=== PATIENT | female | born 1935 | race Hispanic/Latino ===

== ENCOUNTER 2022-03-21 09:28 | Observation (INO) | payer MEDICARE, MEDICAID ==
[~2022-03-21] VITALS: Ht 152.4 cm; Wt 81.5 kg
[2022-03-21 10:07] LABS: HEMATOCRIT 43.2 % (37.0-47.0); HEMOGLOBIN 13.5 g/dl (12.0-16.0); IMMATURE GRANULOCYTES 0.2 % (0.0-5.0); MEAN CELL VOLUME 107.7 fL CALC (80.0-100.0); MEAN CORPUSCULAR HGB 33.7 pG CALC (26.0-32.0); MEAN CORPUSCULAR HGB CONC 31.3 g/dL CAL (32.0-36.0); NEUT# 7.52 thou/uL (2.00-7.15); RED BLOOD COUNT 4.01 mill/uL (4.20-5.60); RED CELL DISTRI WIDTH 13.8 % (11.5-15.5)
[2022-03-21] MEDS ORDERED: CARVEDILOL3.125 MG PO (10:58)
[2022-03-21] MEDS ORDERED: SPIRONOLACT25 MG PO (11:00)
[2022-03-21] MEDS ORDERED: ELIQUIS2.5 MG (11:01)
[2022-03-21] MEDS ORDERED: LISINOPRIL5 MG PO (11:03)
[2022-03-21] MEDS ORDERED: LASIX 40 MG TAB40 MG PO (11:04)
[2022-03-21 11:29] LABS: ALBUMIN 3.8 g/dL (3.2-5.0); BILIRUBIN, TOTAL 1.2 mg/dL (0.0-1.4); TOTAL PROTEIN 7.4 g/dL (6.3-8.2)
[2022-03-21 11:30] LABS: MAGNESIUM 0.8 mg/dL (1.6-2.3); POTASSIUM 5.2 mmol/l (3.5-5.1)
[2022-03-21 19:03] VITALS: BP 96/57
[2022-03-21 19:30] VITALS: BP 100/55
[2022-03-22 00:17] VITALS: BP 90/46
[2022-03-22 03:57] VITALS: BP 114/63
[2022-03-22 05:11] LABS: HEMATOCRIT 38.8 % (37.0-47.0); HEMOGLOBIN 12.2 g/dl (12.0-16.0); MEAN CELL VOLUME 106.3 fL CALC (80.0-100.0); MEAN CORPUSCULAR HGB 33.4 pG CALC (26.0-32.0); MEAN CORPUSCULAR HGB CONC 31.4 g/dL CAL (32.0-36.0); RED BLOOD COUNT 3.65 mill/uL (4.20-5.60); RED CELL DISTRI WIDTH 13.8 % (11.5-15.5)
[2022-03-22 05:36] LABS: CREATININE 1.5 mg/dL (0.5-1.0)
[2022-03-22 05:41] LABS: MAGNESIUM 2.5 mg/dL (1.6-2.3)
[2022-03-22 10:50] VITALS: BP 111/32
[2022-03-22] MEDS ORDERED: AZITHROMYCIN500 MG PO (13:07)
== END 2022-03-22 15:18 | disposition home health service (06) ==
LOC: ED 09:28 → ED-I 10:30 → ED 11:57 → MS2 11:58
PROVIDERS: Internal Medicine; ADMIT Hospitalist; ATTEND Hospitalist
DX: J44.1 Chronic obstructive pulmonary disease with (acute) exacerbation (principal); I11.0 Hypertensive heart disease with heart failure; I50.9 Heart failure, unspecified; E86.0 Dehydration; E83.42 Hypomagnesemia; I95.9 Hypotension, unspecified; N17.9 Acute kidney failure, unspecified; I48.91 Unspecified atrial fibrillation; F03.90 Unspecified dementia, unspecified severity, without behavioral disturbance, psychotic disturbance, mood disturbance, and anxiety; Z79.01 Long term (current) use of anticoagulants; Z99.81 Dependence on supplemental oxygen; Z20.822 Contact with and (suspected) exposure to COVID-19
CPT/HCPCS: G0378; J3475

== ENCOUNTER 2022-05-08 07:56 | Observation (INO) | payer MEDICARE, MEDICAID ==
[~2022-05-08] VITALS: Ht 152.4 cm; Wt 78.0 kg
[2022-05-08] VITALS (30 sets, daily range): BP systolic 69–128; BP diastolic 51–92
[~2022-05-08 07:56] MED LIST: AZITHROMYCIN500 MG PO; CARVEDILOL3.125 MG PO; ELIQUIS2.5 MG; LASIX 40 MG TAB40 MG PO; LISINOPRIL5 MG PO; SPIRONOLACT25 MG PO
[2022-05-08 08:25] LABS: HEMATOCRIT 36.4 % (37.0-47.0); HEMOGLOBIN 11.3 g/dl (12.0-16.0); IMMATURE GRANULOCYTES 0.2 % (0.0-5.0); MEAN CELL VOLUME 108.3 fL CALC (80.0-100.0); MEAN CORPUSCULAR HGB 33.6 pG CALC (26.0-32.0); NEUT# 3.06 thou/uL (2.00-7.15); RED BLOOD COUNT 3.36 mill/uL (4.20-5.60); RED CELL DISTRI WIDTH 13.5 % (11.5-15.5)
[2022-05-08 08:43] LABS: ALBUMIN 3.6 g/dL (3.2-5.0); ALKALINE PHOSPHATASE 57 u/l (38-126); BILIRUBIN, TOTAL 0.6 mg/dL (0.0-1.4); CARBON DIOXIDE 31 mmol/l (22-30); CHLORIDE 101 mmol/l (95-108); GFR FOR AFR.AMER. > 60 ML/MIN (>=60 (CALC)); GFR OTHER RACES 52 ML/MIN (>=60 (CALC)); SGOT/AST 26 u/l (9-36); SODIUM 140 mmol/l (137-146)
[2022-05-08 08:45] LABS: ANION GAP 12 (6-22 (CALC)); BUN 13 mg/dL (8-23); BUN/CREATININE RATIO 13 (12-20 (CALC)); POTASSIUM 3.6 mmol/l (3.5-5.1)
[2022-05-08 11:35] LABS: URINE BILIRUBIN - DIPSTICK NEGATIVE (NEGATIVE); URINE BLOOD DIPSTICK TRACE-INTACT (NEGATIVE); URINE COLOR YELLOW; URINE GLUCOSE - DIPSTICK NEGATIVE (NEGATIVE); URINE KETONE NEGATIVE (NEGATIVE); URINE LEUK ESTERASE NEGATIVE (NEGATIVE); URINE PROTEIN - DIPSTICK NEGATIVE (NEG-TRACE); URINE UROBILINOGEN - DIPSTICK 0.2 E.U./dL (0.2)
[2022-05-08 11:40] LABS: URINE NITRITE - DIPSTICK NEGATIVE (Negative)
[2022-05-08] MEDS ORDERED: ASPIRIN81 MG PO (12:57)
[2022-05-08] MEDS ORDERED: CARVEDILOL3.125 MG PO (12:57)
[2022-05-08] MEDS ORDERED: SPIRONOLACTONE25 MG PO (12:59)
[2022-05-08] MEDS ORDERED: FUROSEMIDE20 MG PO (12:59)
[2022-05-08] MEDS ORDERED: POTASSIUM CHLO20 ME2 PO (13:00)
[2022-05-08] MEDS ORDERED: OMEPRAZOLE DR40 MG PO (13:00)
[2022-05-08] MEDS ORDERED: LISINOPRIL5 MG PO (13:01)
[2022-05-08] MEDS ORDERED: ELIQUIS2.5 MG PO (13:01)
[2022-05-08] MEDS ORDERED: SERTRALINE25 MG PO (13:01)
[2022-05-09] VITALS (8 sets, daily range): BP systolic 72–108; BP diastolic 28–73
[2022-05-09 06:33] LABS: ANION GAP 14 (6-22 (CALC)); BUN 15 mg/dL (8-23); BUN/CREATININE RATIO 15 (12-20 (CALC)); CALCULATED LDLCHOLESTEROL 144 mg/dL (62-129 (CALC)); CARBON DIOXIDE 33 mmol/l (22-30); CHLORIDE 96 mmol/l (95-108); CHOLESTEROL HDL RATIO 4.4 (<4.4 (CALC)); GFR FOR AFR.AMER. > 60 ML/MIN (>=60 (CALC)); GFR OTHER RACES 52 ML/MIN (>=60 (CALC)); HDL CHOLESTEROL 48 mg/dL (>=40); POTASSIUM 3.7 mmol/l (3.5-5.1); SODIUM 139 mmol/l (137-146); TOTAL CHOLESTEROL 212 mg/dl (0-199); TOTAL TRIGLYCERIDES 95 mg/dl (30-149); VLDL CHOLESTROL 19 mg/dl (0-48 (CALC))
[2022-05-09 06:37] LABS: MAGNESIUM 0.4 mg/dL (1.6-2.3)
[2022-05-09 06:39] LABS: HEMOGLOBIN 11.3 g/dl (12.0-16.0); MEAN CELL VOLUME 108.4 fL CALC (80.0-100.0); MEAN CORPUSCULAR HGB CONC 31.4 g/dL CAL (32.0-36.0); RED BLOOD COUNT 3.32 mill/uL (4.20-5.60); RED CELL DISTRI WIDTH 13.5 % (11.5-15.5)
[2022-05-09] MEDS ORDERED: MAGOX 400400 MG PO (11:40)
== END 2022-05-09 14:11 | disposition home health service (06) ==
LOC: ED 07:56 → ED-I 08:33 → ED 08:33 → ED-I 10:10 → ED 10:45 → MS2 10:46
PROVIDERS: Family Medicine; ADMIT Internal Medicine; ATTEND Internal Medicine
DX: I11.0 Hypertensive heart disease with heart failure (principal); I50.9 Heart failure, unspecified; N17.9 Acute kidney failure, unspecified; E83.42 Hypomagnesemia; E83.51 Hypocalcemia; J44.9 Chronic obstructive pulmonary disease, unspecified; I48.91 Unspecified atrial fibrillation; F03.90 Unspecified dementia, unspecified severity, without behavioral disturbance, psychotic disturbance, mood disturbance, and anxiety; Z86.711 Personal history of pulmonary embolism; Z99.81 Dependence on supplemental oxygen; Z20.822 Contact with and (suspected) exposure to COVID-19
CPT/HCPCS: G0378; J3475; Q9967

== ENCOUNTER 2022-07-02 13:47 | Inpatient (IN) | payer MEDICARE, MEDICAID ==
[~2022-07-02] VITALS: Ht 154.9 cm; Wt 85.1 kg
[2022-07-02] VITALS (28 sets, daily range): BP systolic 78–117; BP diastolic 40–83
[~2022-07-02 13:47] MED LIST changes: +ASPIRIN81 MG PO; +ELIQUIS2.5 MG PO; +FUROSEMIDE20 MG PO; +MAGOX 400400 MG PO; +OMEPRAZOLE DR40 MG PO; +POTASSIUM CHLO20 ME2 PO; +SERTRALINE25 MG PO; +SPIRONOLACTONE25 MG PO
--- NOTE | 2022-07-02 13:47 | NUR ---
PT TO ROOM VIA EMS FROM HOME
--- NOTE | 2022-07-02 14:00 | NUR ---
PT IN ROOM ON MONITOR, CENTRAL LINE TO BE PLAVED PER ER MD.
[2022-07-02 14:40] LABS: HEMATOCRIT 31.1 % (37.0-47.0); HEMOGLOBIN 9.5 g/dl (12.0-16.0); IMMATURE GRANULOCYTES 0.5 % (0.0-5.0); MEAN CELL VOLUME 109.5 fL CALC (80.0-100.0); MEAN CORPUSCULAR HGB 33.5 pG CALC (26.0-32.0); MEAN CORPUSCULAR HGB CONC 30.5 g/dL CAL (32.0-36.0); NEUT# 13.6 thou/uL (2.00-7.15); RED BLOOD COUNT 2.84 mill/uL (4.20-5.60); RED CELL DISTRI WIDTH 13.6 % (11.5-15.5)
--- NOTE | 2022-07-02 15:00 | NUR ---
PT IN ROOM ON MONITOR RECEIVING IV FLUIDS, ANTIBIOTICS, AND VASOPRESSERS, WILL CONT TO MONITOR.
[2022-07-02 15:11] LABS: ALBUMIN 3.1 g/dL (3.2-5.0); CREATININE 1.2 mg/dL (0.5-1.0); POTASSIUM 3.3 mmol/l (3.5-5.1); TOTAL PROTEIN 6.6 g/dL (6.3-8.2)
[2022-07-02 15:23] LABS: BILIRUBIN, TOTAL 2.3 mg/dL (0.0-1.4)
--- NOTE | 2022-07-02 16:01 | NUR ---
PT IN ROOM ON MONITOR RECEIVING IV FLUIDS AND ANTIBIOTICS, CENTRAL LINE PLACED IN PT RIGHT IJ. WILL CONT TO MONITOR.
--- NOTE | 2022-07-02 17:00 | NUR ---
PT TO BE ADMITTED TO ICU, RECEIVING IV FLUIDS AND SLEEPING.
--- NOTE | 2022-07-02 18:00 | NUR ---
PT BP STEADILY DECREASING, LEVOPHED INCREASED, NOTIFIED, PT ALSO PUT ON VENTI MASK 40% BY RT.
--- NOTE | 2022-07-02 19:01 | NUR ---
PT BP IMPROVING WITH LEVOPHED, AWAITING ICU BED, CONTINUING TO MONITOR.
--- NOTE | 2022-07-02 19:57 | NUR ---
REPORT CALLED TO MAVERICK FISCHER.
--- NOTE | 2022-07-02 20:44 | NUR ---
Admission Note Report Given to: MAVERICK RN Transported by: Wheelchair X Stretcher Transported with: X Nurse Transporter X Patent IV X O2 X Heating Unit Installer Location: X ICU MS2 PT ADMITTED TO ICU BED 8, TRANSPORTED VIA STRETCHER, ON OXYGEN BY SETH FISCHER.
--- NOTE | 2022-07-02 21:00 | NUR ---
RECIEVED PATIENT FROM er ,UKRAINIAN SPEAKING ONLY .ON LEVOPHED DRIP TITRATING TO KEEP MAP> 85. VENTI MASK ON 7 LITERS . NO S/S OF DISTRESS NOTED.ABSCESS TO RIGHT SUDHIR UP TO THE BUTTOCK NOTED. SMALL AMOUNT OF REDDISH DRAINAGE NOTED.
[2022-07-02 21:47] LABS: URINE BLOOD DIPSTICK NEGATIVE (NEGATIVE); URINE GLUCOSE - DIPSTICK 100 mg/dL (NEGATIVE); URINE KETONE NEGATIVE (NEGATIVE); URINE LEUK ESTERASE NEGATIVE (NEGATIVE); URINE PROTEIN - DIPSTICK TRACE mg/dL (NEG-TRACE); URINE SPECIFIC GRAVITY 1.025
[2022-07-02 21:48] LABS: URINE BILIRUBIN - DIPSTICK SMALL (NEGATIVE); URINE COLOR AMBER; URINE NITRITE - DIPSTICK NEGATIVE (Negative)
[2022-07-03] VITALS (144 sets, daily range): BP systolic 61–159; BP diastolic 30–113
--- NOTE | 2022-07-03 00:19 | NUR ---
CALL PLACED TO DR. ALEXANDER REGARDING PATIENT LOW B/P ORDER NOTED TO GIVE 500 NS BOLUS AND START PATIENT ON EPINEPHRINE OR VASOPRESSIN.
--- NOTE | 2022-07-03 02:22 | NUR ---
patient resting in bed .she tried to pull her i.v lines.
[2022-07-03 07:02] LABS: HEMATOCRIT 31.1 % (37.0-47.0); HEMOGLOBIN 9.4 g/dl (12.0-16.0); MEAN CELL VOLUME 112.3 fL CALC (80.0-100.0); MEAN CORPUSCULAR HGB 33.9 pG CALC (26.0-32.0); MEAN CORPUSCULAR HGB CONC 30.2 g/dL CAL (32.0-36.0); RED BLOOD COUNT 2.77 mill/uL (4.20-5.60); RED CELL DISTRI WIDTH 13.9 % (11.5-15.5)
[2022-07-03 07:18] LABS: ALBUMIN 2.9 g/dL (3.2-5.0); BILIRUBIN, TOTAL 1.9 mg/dL (0.0-1.4); CREATININE 1.3 mg/dL (0.5-1.0); POTASSIUM 3.4 mmol/l (3.5-5.1); TOTAL PROTEIN 6.2 g/dL (6.3-8.2)
--- NOTE | 2022-07-03 07:32 | NUR ---
Ping coates for possible i&d procedure
--- NOTE | 2022-07-03 07:50 | NUR ---
Patient agitated and anxious, yelling out in persian, family to come and visit with patient this am.
[2022-07-03 07:53] LABS: MAGNESIUM 0.9 mg/dL (1.6-2.3)
--- NOTE | 2022-07-03 08:09 | NUR ---
Patient taken off venti mask and placed on nasal canula at 3 liters humidified.
[2022-07-03] MEDS ORDERED: CALCIUM600 M1 PO (09:56)
--- NOTE | 2022-07-03 13:35 | NUR ---
S: VIOLA SUAREZ is a 86 F who presents with cellulitis and pneumonia. She has a history of COPD, CHF, and A-FIB. All medications in patient's chart were reviewed. O: VS: BP 104/92mmHg, P 99bpm, RR 20breaths/min, T 96.5 F W 62.72kg, HT 61in, Scr= 1.3mg/dL, CrCl= 25ml/min A: Blood culture is pending. P: Patient is on Zosyn. Vancomycin ordered for pharmacy to dose. Start Vancomycin 1g IV Q36H. Vancomycin trough is drawn before the 4th dose on 07/05 at 1530. Vancomycin goal trough is between 15-20 mcg/ml. Pharmacy will follow and or advise on antibiotics use as needed.
--- NOTE | 2022-07-03 20:00 | NUR ---
SHIFT REASSESSMENT - PT SLEEPING AT THIS TIME. REMAINS DISORIENTED WHEN SHE IS AWAKE. DOES ACCEPT WATER AND FOOD WHEN OFFERED, BUT SPITS OUT HER PILLS. PTS VITAL SIGNS ARE WITHIN NORMAL LIMITS. ON LEVOPHED DRIP AND IV FLUIDS. SAFETY PRECAUTIONS ARE IN PLACE. PT BEING CLOSELY MONITORED.
[2022-07-04] VITALS (96 sets, daily range): BP systolic 84–138; BP diastolic 42–85
--- NOTE | 2022-07-04 | NUR ---
SHIFT REASSESSMENT - PT NPO AT THIS TIME. PTS VITAL SIGNS ARE WITHIN NORMAL LIMITS. LEVOPHED BEING TITRATED DOWN.
--- NOTE | 2022-07-04 04:00 | NUR ---
SHIFT REASSESSMENT - NO CHANGE IN PTS STATUS SINCE PREVIOUS ASSESSMENT. SAFETY PRECAUTIONS ARE IN PLACE. PT BEING CLOSELY MONITORED.
[2022-07-04 06:56] LABS: HEMATOCRIT 34.1 % (37.0-47.0); HEMOGLOBIN 10.1 g/dl (12.0-16.0); MEAN CORPUSCULAR HGB 34.4 pG CALC (26.0-32.0); MEAN CORPUSCULAR HGB CONC 29.6 g/dL CAL (32.0-36.0); RED BLOOD COUNT 2.94 mill/uL (4.20-5.60); RED CELL DISTRI WIDTH 13.8 % (11.5-15.5)
[2022-07-04 07:19] LABS: ALBUMIN 2.8 g/dL (3.2-5.0); BILIRUBIN, TOTAL 1.7 mg/dL (0.0-1.4); CREATININE 1.5 mg/dL (0.5-1.0); TOTAL PROTEIN 6.1 g/dL (6.3-8.2)
[2022-07-04 07:24] LABS: POTASSIUM 4.1 mmol/l (3.5-5.1)
[2022-07-04 07:25] LABS: MAGNESIUM 1.8 mg/dL (1.6-2.3)
--- NOTE | 2022-07-04 09:00 | NUR ---
pt to OR then back due to decreased LOC and minimal responsiveness, remains off levophed
--- NOTE | 2022-07-04 10:06 | NUR ---
ABG done, Bipap initiated at 40% O2, 20/10, pt responsive to painful stimuli but does not open eyes
--- NOTE | 2022-07-04 12:40 | NUR ---
pt more responsive, opens eyes to voice and follows simple commands, remains on Bipap
--- NOTE | 2022-07-04 14:55 | NUR ---
FIO2 DECREASED TO 35%.
--- NOTE | 2022-07-04 15:50 | NUR ---
pt continues on Bipap, blood gasses improving, less responsive at this time, does not open eyes to voice but does respond to movement and stimuli
--- NOTE | 2022-07-04 18:00 | NUR ---
Dr Ugrate notified of minimal urine output
--- NOTE | 2022-07-04 18:28 | NUR ---
orders received from Dr Ugarte, blood drawn, awaiting pharmacy
[2022-07-04 18:58] LABS: CREATININE 1.8 mg/dL (0.5-1.0)
--- NOTE | 2022-07-04 19:15 | NUR ---
pt is poorly responsive. bipap cont. hob remains elevated. surveillance system monitor shows a fib pvcs. ivf infusing well per rij tlc. webb cath draining scant amount urine. 10cc urine emptied. webb bag changed to urometer. lasix given as ordered. pt has general body edema. turned & repositioned. requires total care for all needs.
--- NOTE | 2022-07-04 20:45 | NUR ---
dr lizarraga called this hand sign writer. update given. orders rec'd. rt notified of need for abg.
--- NOTE | 2022-07-04 21:15 | NUR ---
rt here. abg drawn.
--- NOTE | 2022-07-04 21:30 | NUR ---
pt attempting to take off bipap. rt here. spoke stateless to pt & pt is responding appropriately. rt explained to pt bipap must stay on. pt verbalized understanding. mouth care given.
--- NOTE | 2022-07-04 21:45 | NUR ---
dr lizarraga called this writer editor. updated on pts condition. is aware of very low uop. no new orders.
[2022-07-05] VITALS (96 sets, daily range): BP systolic 68–149; BP diastolic 40–94
--- NOTE | 2022-07-05 00:01 | NUR ---
has had few drops of urine in webb tubing. cafeteria monitor shows sinus rhythm pacs & pvcs. turned & repositioned.
--- NOTE | 2022-07-05 01:00 | NUR ---
RECEIVED PATIENT AT THIS TIME FROM MED/SURG PATIENT ALERT AND ORIENTED X 3 PATIENT VITAL SIGNS AT THIS TIME ARE: TEMP IS 98.3 PULSE 85 BP 90/61 PULSE OX 95% ON ROOM AIR. PATIENT PRESENTS WITH 14 F BI WILLS WITH CBI IRRIGATION FLOWING. PATIENT DENEIS ANY PAIN AT THIS TIME. REPORT GIVEN TO THIS NURSE AT BEDSIDE BY LETI FISCHER. PATIENT SENT TO ICU TO START ON LEVOPHED DRIP DUE TO LOW BLOOD PRESSURE. PATIENT GIVEN EDUCATION ON MEDICATION. WILLS DRAINING CLEAR YELLOW URINE WITHOUT ANY PRESSURE OR PAIN WILL CONTINUE TO MONITOR.
--- NOTE | 2022-07-05 02:00 | NUR ---
cont to have scant uop. bipap cont. party host/hostess shows sinus rhythm pacs pvcs.
--- NOTE | 2022-07-05 04:50 | NUR ---
blood drawn & sent to lab
--- NOTE | 2022-07-05 05:24 | NUR ---
complete bed bath given x2 assists. linens changed.
[2022-07-05 05:54] LABS: HEMATOCRIT 29.8 % (37.0-47.0); IMMATURE GRANULOCYTES 0.6 % (0.0-5.0); MEAN CELL VOLUME 111.6 fL CALC (80.0-100.0); MEAN CORPUSCULAR HGB 33.7 pG CALC (26.0-32.0); MEAN CORPUSCULAR HGB CONC 30.2 g/dL CAL (32.0-36.0); NEUT# 10.07 thou/uL (2.00-7.15); RED BLOOD COUNT 2.67 mill/uL (4.20-5.60); RED CELL DISTRI WIDTH 13.7 % (11.5-15.5)
[2022-07-05 06:13] LABS: ALBUMIN 2.4 g/dL (3.2-5.0); BILIRUBIN, TOTAL 1.4 mg/dL (0.0-1.4); CREATININE 2.1 mg/dL (0.5-1.0); MAGNESIUM 1.7 mg/dL (1.6-2.3); POTASSIUM 4.1 mmol/l (3.5-5.1); TOTAL PROTEIN 5.4 g/dL (6.3-8.2)
--- NOTE | 2022-07-05 06:15 | NUR ---
xray here. pcxr obtained.
--- NOTE | 2022-07-05 06:25 | NUR ---
rt here. abgs drawn.
--- NOTE | 2022-07-05 06:29 | NUR ---
FIO2 DECREASED TO 30%
--- NOTE | 2022-07-05 06:52 | NUR ---
dr lizarraga called this physician underwriter. update given. orders rec'd.
--- NOTE | 2022-07-05 10:28 | NUR ---
PT. PULLING OFF BIPAP. REFUSING TO KEEP ON. PLACED ON 3L NC.
--- NOTE | 2022-07-05 11:32 | NUR ---
pt woke up and began to pull at Bipap mask so she is back on NC at this time, O2 sats continue low 90's, Dr Urena has been in to see her and is planning on surgery tomorrow, pt yelling for "agua", mouth swabbed and moisturizer applied
--- NOTE | 2022-07-05 13:37 | NUR ---
PLACED BACK ON BIPAP.
--- NOTE | 2022-07-05 19:20 | NUR ---
bipap cont. pt repeats several times "i can't" in khmer per engraver optical frames. therapist radiation shows sinus rhythm pacs. ivf infusing well per lij tlc. webb cath in place draining scant amt urine. gen body edema conts. arms weeping slightly & are elevated on pillows. turned & repositioned.
--- NOTE | 2022-07-05 19:50 | NUR ---
dr lizarraga called this science writer. updated on pts condition. orders rec'd.
--- NOTE | 2022-07-05 20:00 | NUR ---
rt here. abgs drawn.
--- NOTE | 2022-07-05 21:20 | NUR ---
pt c/o general pain (per casting tester). dr lizarraga notified. orders rec'd.
--- NOTE | 2022-07-05 22:00 | NUR ---
medicated for pain as ordered.
--- NOTE | 2022-07-05 23:18 | NUR ---
BIPAP PLACED ON STANDBY TOLERATING WELL WITH STABLE VITALS.
--- NOTE | 2022-07-05 23:30 | NUR ---
eyes closed. resting quietly. o2 cont per nc. hob remains elevated. tassel snipper shows sinus rhythm pacs.
[2022-07-06] VITALS (104 sets, daily range): BP systolic 57–148; BP diastolic 31–119
--- NOTE | 2022-07-06 02:00 | NUR ---
resting quietly. no resp distress. o2 cont per nc.
--- NOTE | 2022-07-06 04:30 | NUR ---
xray here. pcxr obtained
--- NOTE | 2022-07-06 05:00 | NUR ---
blood drawn & sent to lab. bath & linen change x2 assists.
[2022-07-06 05:20] LABS: HEMATOCRIT 29.1 % (37.0-47.0); HEMOGLOBIN 9.2 g/dl (12.0-16.0); MEAN CELL VOLUME 107.8 fL CALC (80.0-100.0); MEAN CORPUSCULAR HGB 34.1 pG CALC (26.0-32.0); MEAN CORPUSCULAR HGB CONC 31.6 g/dL CAL (32.0-36.0); RED BLOOD COUNT 2.7 mill/uL (4.20-5.60)
[2022-07-06 05:28] LABS: ALBUMIN 2.6 g/dL (3.2-5.0); BUN 31 mg/dL (8-23); CARBON DIOXIDE 21 mmol/l (22-30); CHLORIDE 107 mmol/l (95-108); CREATININE 2.7 mg/dL (0.5-1.0); GFR FOR AFR.AMER. 20 ML/MIN (>=60 (CALC)); GFR OTHER RACES 17 ML/MIN (>=60 (CALC)); POTASSIUM 3.9 mmol/l (3.5-5.1); SODIUM 139 mmol/l (137-146)
--- NOTE | 2022-07-06 09:50 | NUR ---
Dr Urena has been in to drain abcess, wound packed with gauze, pt twyla well, family has been in to see pt, waiting to meet with Dr Ugarte, pt is resting with NC in place, not yelling out
--- NOTE | 2022-07-06 11:00 | NUR ---
Dr Garcia called to ask about family wishes in regard to dialysis, Dr Ugarte in with family now to discuss their wishes and to answer questions about pt
--- NOTE | 2022-07-06 12:36 | NUR ---
pt family called and spoke to myself and Niyah to express wish to do dialysis but to make pt DNR, Dr Ugarte informed
--- NOTE | 2022-07-06 12:40 | NUR ---
Dr Costa called to follow up with pt, will call again later
--- NOTE | 2022-07-06 14:15 | NUR ---
Dr Mejia in room, inserted temp dialysis cath to R fem
--- NOTE | 2022-07-06 15:41 | NUR ---
Dr Costa evaluated pt via video, recommended pt back on Bipap,1445 Bipap mask placed back on at previous settings, 20 @ 30%, 1525 Levophed restarted due to consistant low BP
--- NOTE | 2022-07-06 18:14 | NUR ---
pt grand daughter at bedside at this time, she removed Bopap mask per pt request so NC back in place at 2 Lpm, pt does c/o pain at vas cath site, explained to family side effects of giving pain meds: low BP and depressed RR
--- NOTE | 2022-07-06 19:00 | NUR ---
[id number] awake. o2 cont per nc. laboratory monitor shows sinus rhythm. ivf infusing per rij tlc. webb cath in plce. no urine output. gen body edema conts. bilat arms elevated on pillows. kerlex packing to i&d site in place & draining bloody. requires total assist with all care. pt pulling @ o2, laboratory monitor, iv tubing. requires frequent observation. granddaughter(guido) @ bedside & is tearful. she is speaking to other family members on facetime. grails web application developer provided spoke @ length to them about pts status-no urine output, low bp, sepsis, dialysis cath, vital signs, meds, i&d packing, bipap. all questions answered. family eventually decided to keep bipap off d/t pts refusal & nasal cannula was placed. before granddaughter left for the evening spoke to her @ length again about pts condition. she has expressed several times "it was only a pimple." granddaughter referring to rectal abcess. explained again about previous topics. phone number & pt code number given to her & she was instructed to call this process description writer anytime tonight. dr lizarraga was updated on pts condition-no urine output, no bipap, vital signs. no new orders.
--- NOTE | 2022-07-06 19:57 | NUR ---
Patient placed on Bipap, tolerating well at this time.
--- NOTE | 2022-07-06 21:04 | NUR ---
Bipap currently on standby, grand daughter refused to not have her grandmother placed back on bipap. Confirmed with Emma FISCHER.
--- NOTE | 2022-07-06 21:38 | NUR ---
Patient placed on NRB due to oxygen desaturation. Tolerating well at this time.
--- NOTE | 2022-07-06 22:00 | NUR ---
[id number] pt required constant supervision because she pulled nrb off VERY frequently. bilat wrist restraints were applied @ 2344.
[2022-07-07] VITALS (57 sets, daily range): BP systolic 63–196; BP diastolic 29–172
--- NOTE | 2022-07-07 02:00 | NUR ---
library monitor shows sinus rhythm pacs. no urine output. o2 cont.
--- NOTE | 2022-07-07 03:30 | NUR ---
blood drawn & sent to lab.
[2022-07-07 04:10] LABS: HEMATOCRIT 28.7 % (37.0-47.0); HEMOGLOBIN 8.9 g/dl (12.0-16.0); MEAN CELL VOLUME 110.4 fL CALC (80.0-100.0); MEAN CORPUSCULAR HGB 34.2 pG CALC (26.0-32.0); RED BLOOD COUNT 2.6 mill/uL (4.20-5.60); RED CELL DISTRI WIDTH 14.4 % (11.5-15.5)
--- NOTE | 2022-07-07 04:30 | NUR ---
rosamaria, dialysis nurse here. she called dr alvarez & updated him on pts condition. he still wanted to do dialysis on pt. guido kessler(granddaughter) called. phone consent rec'd.
[2022-07-07 04:38] LABS: ALBUMIN 2.6 g/dL (3.2-5.0); BILIRUBIN, TOTAL 1.7 mg/dL (0.0-1.4); CREATININE 3.3 mg/dL (0.5-1.0); MAGNESIUM 1.7 mg/dL (1.6-2.3); POTASSIUM 4.4 mmol/l (3.5-5.1); TOTAL PROTEIN 5.8 g/dL (6.3-8.2)
--- NOTE | 2022-07-07 06:12 | NUR ---
DIALYSIS PRE: PT RECEIVED IN BED, ICU8, PT CONFUSED, WITH RESTRAIN ON BOTH ARMS, LEVO @ 15 MCG AND VASOPRESSIN 0.07 UNI/MIN, BP 101/73 P 89, SAT. 88%, R-21, TEMP-96.5 LUNGS WITH EXP. CRACKLES BILAT, PT WITH GENERALIZED EDEMA. PT AWAKE, PRIMARY RN CALLED FAMILY TO GET HER HD TX CONSENT, SIGNED BY 2 [employer] SPECIALIST'S, DR. RAINEY CALLED ABOUT HER STATUS. ALBUMIN ORDER GIVEN, PT WITH RT FEMORAL LINE PUT ON 07/06/22, DRESSING CHANGED, NO S/S OF INFECTION. TX STARTED UNDER ASEPTIC TECHNIQUES, [employer]ARGET SET TO 1 LT BRYCE, WILL MONITOR HER BP. [id number] CARTRIDGE [id number] PH-7.2 COND. ACT-14.1 COND. EXP-14.0 WATER TEMP- 78.5
--- NOTE | 2022-07-07 06:30 | NUR ---
[id number] midray monitor shows hr 147-199. heart rate has been 84-110. shows bp 150/120-190/134. bp has been 89/53-101/73. rt has changed pulse ox probe several times d/t poor reading.
--- NOTE | 2022-07-07 08:08 | NUR ---
PT SEEN AWAKE, ORIENTED TO SELF, KHMER ONLY. PT WITH NRB IN PLACE, MAINTAINS SATS IN THE MID 80s. PT OCCASIONALLY CRIES OUT WITHOUT PURPOSE. RESTRAINTS IN PLACE PT REACHES FOR NRB OTHERWISE. NO FAMILY AT BEDSIDE AT THIS TIME. PT NOTED TO BE DNR. DIALYSIS IN PROGRESS AT THIS TIME PT ANURIC DURING NIGHT. PT UNABLE TO CLEAR SECRETIONS FROM THROAT PER WEAK COUGH.
--- NOTE | 2022-07-07 11:27 | NUR ---
PT HAS . RESPIRATIONS BECAME AGONAL, HR WENT FROM 140 TO 85, CONTINUED TO DROP UNTIL STOPPED. GRANDDAUGHTER LUCIA WETZEL WAS NOTIFIED AFTER GRANDDAUGHTER SALMA DID NOT ANSWER HER PHONE. LUCIA SAID THAT SHE WOULD TELL THE FAMILY. FAMILY WILL COME TO VISIT.
--- NOTE | 2022-07-07 11:42 | NUR ---
DIALYSIS POST: PT STARTED WITH TACHY, 160'S-190'S. TX ENDED 20 MIN LEFT. BLOOD RETURNED UNDER ASEPTIC TECHNIQUES, CVC CAPPED AND CLAMPPED. 400 ML REMOVED. PREETI FISCHER BEDSIDE. DR. RAINEY NOTIFIED.
--- NOTE | 2022-07-07 11:53 | NUR ---
[facility] called per securities underwriter; information provided to Rafaela; pt r/o for tissue annd organ donation; awaiting return call from [facility]; referral # [id number]
--- NOTE | 2022-07-07 12:03 | NUR ---
call received from [facility] at [facility]; pt ruled out/released
--- NOTE | 2022-07-07 12:47 | NUR ---
PT VISITED BY GRANDDAUGHTER LUCIA AND HER MOTHER. FAMILY COMING FROM [facility] TO PAY RESPECTS.
--- NOTE | 2022-07-07 16:28 | NUR ---
FAMILY MEMBERS HAVE GONE HOME. HOME HAS BEEN NOTIFIED. BELONGINGS WERE SENT HOME WITH MARIKA WETZEL, WHICH INCLUDED CLOTHES, ID CARD, DENTURES, AND EARRINGS.
--- NOTE | 2022-07-07 18:01 | NUR ---
MAHADEILEEN THOMASCHET LEAVES WITH BODY AT THIS TIME.
== END 2022-07-07 11:30 | disposition expired | DRG 871 ==
LOC: ED 13:47 → ED-I 17:50 → ED 19:36 → ICU 19:37
PROVIDERS: Family Medicine; Internal Medicine Nephrology; ADMIT Internal Medicine; ATTEND Internal Medicine
PROC: 02HV33Z Insertion of Infusion Device into Superior Vena Cava, Percutaneous Approach (ICD-10-PCS; principal; 2022-07-02)
PROC: 3E043XZ Introduction of Vasopressor into Central Vein, Percutaneous Approach (ICD-10-PCS; 2022-07-02)
PROC: 0T9B70Z Drainage of Bladder with Drainage Device, Via Natural or Artificial Opening (ICD-10-PCS; 2022-07-02)
PROC: 5A09457 Assistance with Respiratory Ventilation, 24-96 Consecutive Hours, Continuous Positive Airway Pressure (ICD-10-PCS; 2022-07-04)
PROC: 06HY33Z Insertion of Infusion Device into Lower Vein, Percutaneous Approach (ICD-10-PCS; 2022-07-06)
PROC: 0J9B0ZZ Drainage of Perineum Subcutaneous Tissue and Fascia, Open Approach (ICD-10-PCS; 2022-07-06)
PROC: 5A1D70Z Performance of Urinary Filtration, Intermittent, Less than 6 Hours Per Day (ICD-10-PCS; 2022-07-07)
DX: A41.9 Sepsis, unspecified organism (principal); R65.21 Severe sepsis with septic shock; J18.9 Pneumonia, unspecified organism; G93.41 Metabolic encephalopathy; N17.0 Acute kidney failure with tubular necrosis; J96.02 Acute respiratory failure with hypercapnia; J96.01 Acute respiratory failure with hypoxia; L03.315 Cellulitis of perineum; L02.215 Cutaneous abscess of perineum; J44.0 Chronic obstructive pulmonary disease with (acute) lower respiratory infection; E87.4 Mixed disorder of acid-base balance; J44.1 Chronic obstructive pulmonary disease with (acute) exacerbation; J91.8 Pleural effusion in other conditions classified elsewhere; I50.9 Heart failure, unspecified; I48.91 Unspecified atrial fibrillation; F03.90 Unspecified dementia, unspecified severity, without behavioral disturbance, psychotic disturbance, mood disturbance, and anxiety; Z78.1 Physical restraint status; E83.42 Hypomagnesemia; E87.6 Hypokalemia; E83.51 Hypocalcemia; Z79.01 Long term (current) use of anticoagulants; Z87.891 Personal history of nicotine dependence; N18.30 Chronic kidney disease, stage 3 unspecified; D63.1 Anemia in chronic kidney disease; I95.89 Other hypotension; Z66 Do not resuscitate; E83.39 Other disorders of phosphorus metabolism
CPT/HCPCS: C9290; J0692; J1756; J2060; J3475; P9047; Q5106 EC; Q9967; S0164